=== PATIENT | male | born 1970 | race Caucasian/White ===

== ENCOUNTER → 2016-04-12 | Outpatient (REF) | payer OTHER ==
[~2016-04-12] MED LIST: ALLO100T PO; AMLO10TA2 PO; BYST5TAB2 PO
[2016-04-12 18:15] LABS: ALBUMIN 3.8 GM/DL (3.2-5.2); ALBUMIN/GLOBULIN RATIO 1.19 (1.00-1.93); BILIRUBIN,TOTAL 0.4 MG/DL (0.2-1.0); CALCIUM LEVEL 8.9 MG/DL (8.5-10.1); CREATININE FOR GFR 1.59 MG/DL (0.70-1.30); GLOMERULAR FILTRATION RATE 50.6 (>60); POTASSIUM SERUM 4.6 MEQ/L (3.5-5.1)
[2016-04-12 19:14] LABS: BASO % 0.4 % (0.0-1.0); EOS # 0.2 K/mm3 (0.0-0.50); EOS % 2.1 % (0.0-3.0); LARGE UNSTAINED CELL # 0.2 K/mm3 (0.0-0.4); LARGE UNSTAINED CELL % 2.5 % (0.0-4.0); LYMPH # 1.4 K/mm3 (1.5-4.5); LYMPH % 16.7 % (24.0-44.0); MEAN CORPUSCULAR HEMOGLOBIN 27.7 pg (27.0-33.0); MEAN CORPUSCULAR HGB CONC 32.5 g/dl (32.0-36.5); MEAN CORPUSCULAR VOLUME 85.3 fl (80.0-96.0); MONO # 0.5 K/mm3 (0.0-0.8); MONO % 6.4 % (0.0-5.0); NEUTROPHILS # 5.9 K/mm3 (1.8-7.7); NEUTROPHILS % 71.9 % (36.0-66.0); PLATELET COUNT, AUTOMATED 237 k/mm3 (150-450); RED CELL DISTRIBUTION WIDTH 13.4 % (11.5-14.5); WHITE BLOOD COUNT 8.2 K/mm3 (4.0-10.0)
== END | disposition home or self-care (01) ==
LOC: M SFHCLERA 10:41
PROVIDERS: ATTEND Family Medicine
DX: R82.99 Other abnormal findings in urine (principal); J00 Acute nasopharyngitis [common cold]

== ENCOUNTER 2016-06-11 08:54 | Emergency (ER) | payer OTHER ==
[~2016-06-11] VITALS: Ht 180.3 cm; Wt 127.0 kg
[2016-06-11] MEDS ORDERED: CARV3.12 (09:04)
[2016-06-11 09:38] LABS: BASO # 0.1 K/mm3 (0.0-0.2); BASO % 0.7 % (0.0-1.0); EOS # 0.2 K/mm3 (0.0-0.50); LARGE UNSTAINED CELL # 0.1 K/mm3 (0.0-0.4); LARGE UNSTAINED CELL % 1.6 % (0.0-4.0); LYMPH # 2.2 K/mm3 (1.5-4.5); MEAN CORPUSCULAR HEMOGLOBIN 27.6 pg (27.0-33.0); MEAN CORPUSCULAR HGB CONC 33.4 g/dl (32.0-36.5); MEAN CORPUSCULAR VOLUME 82.6 fl (80.0-96.0); MONO # 0.5 K/mm3 (0.0-0.8); MONO % 5.7 % (0.0-5.0); NEUTROPHILS % 63.1 % (36.0-66.0); PLATELET COUNT, AUTOMATED 237 k/mm3 (150-450); WHITE BLOOD COUNT 7.9 K/mm3 (4.0-10.0)
[2016-06-11] MEDS ORDERED: MECLIZINE 25 MG TABLET PO ONE (10:15)
[2016-06-11 10:33] LABS: ALBUMIN 3.9 GM/DL (3.2-5.2); ALBUMIN/GLOBULIN RATIO 1.03 (1.00-1.93); ALKALINE PHOSPHATASE 51 U/L (45-117); ALT/SGPT 60 U/L (12-78); ANION GAP 6 MEQ/L (8-16); AST/SGOT 22 U/L (15-37); BILIRUBIN,DIRECT < 0.1 MG/DL (0.0-0.2); BILIRUBIN,TOTAL 0.2 MG/DL (0.2-1.0); BLOOD UREA NITROGEN 17 MG/DL (7-18); CARBON DIOXIDE LEVEL 27 MEQ/L (21-32); CHLORIDE LEVEL 104 MEQ/L (98-107); CREATININE FOR GFR 1.45 MG/DL (0.70-1.30); GLOMERULAR FILTRATION RATE 56.3 (>60); GLUCOSE, FASTING 114 MG/DL (70-105); POTASSIUM SERUM 4.1 MEQ/L (3.5-5.1); SODIUM LEVEL 137 MEQ/L (136-145); TOTAL PROTEIN 7.7 GM/DL (6.4-8.2)
--- NOTE | 2016-06-11 10:40 | REP ---
Noncontrast head CT: History: Vertigo. History of pseudotumor cerebral. No comparison brain CT. Findings: Digital lateral cow puncher radiograph is unremarkable. Bone window settings demonstrate an intact bony calvarium. Visualized paranasal sinuses are clear. No intraorbital abnormality is seen. On soft tissue window settings, avendaño-white differentiation pattern is normal above and below the tentorium. There is no evidence of diffuse cerebral edema. Lateral third and fourth ventricles are normal in size and position. There is no evidence of intracranial hemorrhage, infarct, mass, extra-axial fluid collection, or midline shift. Impression: Normal noncontrast head CT. Signed by John Meier MD 06/11/2016 11:22 A
[2016-06-11] MEDS ORDERED: MECL-86 PO (12:45)
[2016-06-11 12:54] VITALS: BP 139/83
--- NOTE | 2016-06-13 08:56 | ECGEPIP ---
Stationary ECG Study 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
== END 2016-06-11 12:56 | disposition home or self-care (01) ==
LOC: M ED 10:52
DX: R42 Dizziness and giddiness (principal); H93.12 Tinnitus, left ear; I10 Essential (primary) hypertension; M19.90 Unspecified osteoarthritis, unspecified site; M10.9 Gout, unspecified; Z90.5 Acquired absence of kidney; Z87.891 Personal history of nicotine dependence; Z86.011 Personal history of benign neoplasm of the brain; Z79.899 Other long term (current) drug therapy

== ENCOUNTER → 2016-09-07 | Outpatient (REF) | payer OTHER ==
[~2016-09-07] MED LIST changes: +CARV3.12; +MECL-86 PO
[2016-09-07 11:54] LABS: MEAN CORPUSCULAR HEMOGLOBIN 31.5 pg (27.0-33.0); MEAN CORPUSCULAR HGB CONC 36.3 g/dl (32.0-36.5); MEAN CORPUSCULAR VOLUME 86.9 fl (80.0-96.0); RED CELL DISTRIBUTION WIDTH 13.5 % (11.5-14.5); WHITE BLOOD COUNT 6.2 K/mm3 (4.0-10.0)
[2016-09-07 12:19] LABS: CALCIUM LEVEL 9.4 MG/DL (8.5-10.1); CREATININE FOR GFR 1.55 MG/DL (0.70-1.30); GLOMERULAR FILTRATION RATE 52.1 (>60); POTASSIUM SERUM 4.5 MEQ/L (3.5-5.1)
== END ==
LOC: M SFHCLERA 08:12
PROVIDERS: ATTEND Family Medicine
DX: I10 Essential (primary) hypertension (principal)

== ENCOUNTER 2017-01-22 10:23 | Emergency (ER) | payer OTHER ==
[~2017-01-22] VITALS: Ht 180.3 cm; Wt 132.0 kg
--- NOTE | 2017-01-22 11:32 | REP ---
Clinical: Left testicular pain and swelling. Technique: Real time avendaño scale and color Doppler evaluation using curved array and linear high frequency transducers. Findings: The left epididymis is heterogeneous and asymmetrically enlarged with mildly increased vascularity and a small left hydrocele is noted. Findings are consistent with left epididymitis. The bilateral testicles and right epididymis are normal in contour, size, echogenicity, and vascularity. There is no evidence for testicular torsion. Right testicle measures 4.9 x 3.0 x 3.1 cm. Left testicle measures 4.9 x 2.9 x 3.1 cm. Impression: Findings consistent with mild left epididymitis. Signed by Nitesh Smith MD 01/22/2017 11:23 A
[2017-01-22] MEDS ORDERED: DOXYCYCLINE HYCLATE 100 MG TAB PO ONE (12:45)
[2017-01-22] MEDS ORDERED: cefTRIAXone SOD 250 MG VIAL (J0696) IM ONE (12:45)
[2017-01-22] MEDS ORDERED: DOXY100C37 PO (12:46)
[2017-01-22] MEDS ORDERED: LIDOCAINE 1% MDV 20ML VIAL As Ordered ONE (12:58)
[2017-01-22 13:55] VITALS: BP 149/93
== END 2017-01-22 13:57 | disposition home or self-care (01) ==
LOC: M ED 10:23
DX: N45.1 Epididymitis (principal); I10 Essential (primary) hypertension; M10.9 Gout, unspecified; Z79.899 Other long term (current) drug therapy; Z90.5 Acquired absence of kidney; Z87.442 Personal history of urinary calculi; Z98.890 Other specified postprocedural states; Z87.891 Personal history of nicotine dependence
CPT/HCPCS: 76870; 87086; 87491; 87591; 93976; 96372; 99283; J0696

== ENCOUNTER → 2017-02-11 | Outpatient (REF) | payer OTHER ==
[~2017-02-11] MED LIST changes: +DOXY100C37 PO
[2017-02-11 12:17] LABS: ALBUMIN 3.9 GM/DL (3.2-5.2); ALBUMIN/GLOBULIN RATIO 1.08 (1.00-1.93); BILIRUBIN,TOTAL 0.5 MG/DL (0.2-1.0); CREATININE FOR GFR 1.55 MG/DL (0.70-1.30); GLOMERULAR FILTRATION RATE 51.9 (>60); POTASSIUM SERUM 4.6 MEQ/L (3.5-5.1); TOTAL PROTEIN 7.5 GM/DL (6.4-8.2)
== END ==
LOC: M SFHCLERA 09:26
PROVIDERS: ATTEND Physician Assistant
DX: R73.01 Impaired fasting glucose (principal)

== ENCOUNTER → 2017-05-17 | Outpatient (REF) | payer OTHER ==
[2017-05-17 12:39] LABS: ALBUMIN 3.8 GM/DL (3.2-5.2); ALBUMIN/GLOBULIN RATIO 1.06 (1.00-1.93); ALKALINE PHOSPHATASE 48 U/L (45-117); ALT/SGPT 98 U/L (12-78); ANION GAP 6 MEQ/L (8-16); AST/SGOT 35 U/L (7-37); BILIRUBIN,TOTAL 0.5 MG/DL (0.2-1.0); BLOOD UREA NITROGEN 17 MG/DL (7-18); CALCIUM LEVEL 9.1 MG/DL (8.5-10.1); CARBON DIOXIDE LEVEL 30 MEQ/L (21-32); CHLORIDE LEVEL 105 MEQ/L (98-107); CHOLESTEROL LEVEL 162 MG/DL (<200); CHOLESTEROL RISK RATIO 4.628 (<5); CREATININE FOR GFR 1.61 MG/DL (0.70-1.30); GLOMERULAR FILTRATION RATE 49.7 (>60); GLUCOSE, FASTING 114 MG/DL (70-100); HDL CHOLESTEROL 35 MG/DL (>40); LDL CHOLESTEROL 97.4 MG/DL (<100); NON-HDL-C 127 MG/DL; POTASSIUM SERUM 4.9 MEQ/L (3.5-5.1); SODIUM LEVEL 141 MEQ/L (136-145); TOTAL PROTEIN 7.4 GM/DL (6.4-8.2); TRIGLYCERIDES LEVEL 148 MG/DL (<150); URIC ACID 6.2 MG/DL (3.5-7.2)
[2017-05-17 12:46] LABS: ESTIMATED AVERAGE GLUCOSE 143 MG/DL (60-110); HEMOGLOBIN A1c 6.6 %
== END ==
LOC: M SFHCLERA 08:23
DX: E78.2 Mixed hyperlipidemia (principal); I10 Essential (primary) hypertension; R73.01 Impaired fasting glucose; E79.0 Hyperuricemia without signs of inflammatory arthritis and tophaceous disease; F43.23 Adjustment disorder with mixed anxiety and depressed mood

== ENCOUNTER → 2018-01-09 | Outpatient (REF) | payer OTHER ==
[2018-01-09 12:43] LABS: ANION GAP 8 MEQ/L (8-16); BLOOD UREA NITROGEN 16 MG/DL (7-18); CALCIUM LEVEL 9.1 MG/DL (8.5-10.1); CARBON DIOXIDE LEVEL 28 MEQ/L (21-32); CHLORIDE LEVEL 101 MEQ/L (98-107); CHOLESTEROL LEVEL 174 MG/DL (<200); CHOLESTEROL RISK RATIO 6.692 (<5); CREATININE FOR GFR 1.54 MG/DL (0.70-1.30); GLUCOSE, FASTING 252 MG/DL (70-100); HDL CHOLESTEROL 26 MG/DL (>40); LDL CHOLESTEROL 80 MG/DL (<100); NON-HDL-C 148 MG/DL; POTASSIUM SERUM 4.4 MEQ/L (3.5-5.1); SODIUM LEVEL 137 MEQ/L (136-145); TRIGLYCERIDES LEVEL 341 MG/DL (<150)
[2018-01-09 12:52] LABS: MAU/CREAT RATIO 276.4 MCG/MG (0.0-30.0)
[2018-01-09 14:58] LABS: ESTIMATED AVERAGE GLUCOSE 206 MG/DL (60-110); HEMOGLOBIN A1c 8.8 %
== END ==
LOC: M SFHCLERA 09:29
DX: E11.9 Type 2 diabetes mellitus without complications (principal); E78.2 Mixed hyperlipidemia

== ENCOUNTER → 2018-02-09 | Outpatient (REF) | payer OTHER ==
[2018-02-09 17:22] LABS: ANION GAP 7 MEQ/L (8-16); BLOOD UREA NITROGEN 17 MG/DL (7-18); CALCIUM LEVEL 9.1 MG/DL (8.5-10.1); CARBON DIOXIDE LEVEL 29 MEQ/L (21-32); CHLORIDE LEVEL 103 MEQ/L (98-107); CREATININE FOR GFR 1.52 MG/DL (0.70-1.30); GLOMERULAR FILTRATION RATE 52.8 (>60); GLUCOSE, FASTING 125 MG/DL (70-100); POTASSIUM SERUM 3.9 MEQ/L (3.5-5.1); SODIUM LEVEL 139 MEQ/L (136-145)
== END ==
LOC: M SFHCLERA 14:52
DX: D48.5 Neoplasm of uncertain behavior of skin (principal); E11.9 Type 2 diabetes mellitus without complications
CPT/HCPCS: 80048

== ENCOUNTER → 2018-05-18 | Outpatient (REF) | payer OTHER ==
[~2018-05-18] MED LIST changes: -AMLO10TA2 PO; +AMLO10TA5 PO
[2018-05-18 14:04] LABS: HEMOGLOBIN A1c 6.3 %
== END ==
LOC: M LRY 11:34
PROVIDERS: ATTEND Dietitian, Registered Nutrition, Metabolic
DX: E11.9 Type 2 diabetes mellitus without complications (principal)

== ENCOUNTER → 2018-09-15 | Outpatient (REF) | payer OTHER ==
[2018-09-15 11:37] LABS: HEMOGLOBIN A1c 6.2 %
[2018-09-15 11:41] LABS: ALBUMIN 3.9 GM/DL (3.2-5.2); BILIRUBIN,TOTAL 0.3 MG/DL (0.2-1.0); CALCIUM LEVEL 9.1 MG/DL (8.5-10.1); CREATININE FOR GFR 1.55 MG/DL (0.70-1.30); GLOMERULAR FILTRATION RATE 51.6 (>60); POTASSIUM SERUM 4.7 MEQ/L (3.5-5.1); TOTAL PROTEIN 7.4 GM/DL (6.4-8.2)
== END ==
LOC: M SFHCLERA 08:36
PROVIDERS: ATTEND Family Medicine
DX: E11.9 Type 2 diabetes mellitus without complications (principal); I10 Essential (primary) hypertension

== ENCOUNTER 2018-11-19 14:50 | Emergency (ER) | payer OTHER ==
[~2018-11-19] VITALS: Ht 180.3 cm; Wt 127.7 kg
[2018-11-19] MEDS ORDERED: METF-791 (14:59)
--- NOTE | 2018-11-19 16:19 | REP ---
Right lower extremity Duplex Doppler venous ultrasound: Real time compression and duplex Doppler interrogation of the right lower extremity deep venous system is performed. The right common femoral, superficial femoral and popliteal veins are fully compressible with transducer pressure and demonstrate normal spontaneous and phasic flow, without evidence of deep venous thrombosis. Impression: No evidence of deep venous thrombosis of the right lower extremity femoral popliteal venous system. Electronically Signed by Michael Abel MD 11/19/2018 04:10 P
[2018-11-19 16:29] VITALS: BP 125/81
== END 2018-11-19 16:49 | disposition home or self-care (01) ==
LOC: M ED 14:50
DX: M79.661 Pain in right lower leg (principal)

== ENCOUNTER → 2018-12-07 | Outpatient (REF) | payer OTHER ==
[~2018-12-07] MED LIST changes: +METF-791
[2018-12-10 00:07] LABS: Lyme Disease IgG/IgM Antibodie <0.91 ISR (0.00-0.90); Lyme Disease IgM Ab Quantitati <0.80 index (0.00-0.79)
== END ==
LOC: M LABDRAW1 14:30
PROVIDERS: ATTEND Orthopaedic Surgery
DX: M17.0 Bilateral primary osteoarthritis of knee (principal)

== ENCOUNTER → 2018-12-13 | Outpatient (REF) | payer OTHER ==
[2018-12-13 12:19] LABS: CHOLESTEROL RISK RATIO 4.447 (<5)
[2018-12-13 12:45] LABS: HEMOGLOBIN A1c 6.2 %
== END ==
LOC: M SFHCLERA 08:33
PROVIDERS: ATTEND Family Medicine
DX: E11.21 Type 2 diabetes mellitus with diabetic nephropathy (principal)

== ENCOUNTER → 2019-03-20 | Outpatient (REF) | payer BC ==
[2019-03-20 15:16] LABS: HEMOGLOBIN A1c 6.7 %
== END ==
LOC: M SFHCLERA 08:30
PROVIDERS: ATTEND Family Medicine
DX: E11.21 Type 2 diabetes mellitus with diabetic nephropathy (principal)

== ENCOUNTER → 2019-04-10 | Outpatient (REF) | payer BC ==
[2019-04-10 12:46] LABS: BASO # 0.1 10^3/uL (0.0-0.2); EOS # 0.2 10^3/uL (0.0-0.5); EOS % 2.4 % (0.0-3.0); HEMATOCRIT 48.4 % (42.0-52.0); HEMOGLOBIN 15.7 g/dl (13.5-17.5); LYMPH # 1.7 10^3/uL (1.5-5.0); LYMPH % 22.2 % (24.0-44.0); MEAN CORPUSCULAR HEMOGLOBIN 27.6 pg (27.0-33.0); MEAN CORPUSCULAR HGB CONC 32.4 g/dl (32.0-36.5); MEAN CORPUSCULAR VOLUME 85.1 fl (80.0-96.0); MONO # 0.5 10^3/uL (0.0-0.8); MONO % 6.6 % (0.0-5.0); NEUTROPHILS # 5.3 10^3/uL (1.5-8.5); PLATELET COUNT, AUTOMATED 256 10^3/uL (150-450); RED BLOOD COUNT 5.69 10^6/uL (4.30-6.10); WHITE BLOOD COUNT 7.8 10^3/uL (4.0-10.0)
[2019-04-10 13:00] LABS: ALT/SGPT 65 U/L (12-78); BILIRUBIN,TOTAL 0.3 MG/DL (0.2-1.0); BLOOD UREA NITROGEN 16 MG/DL (7-18); C REACTIVE PROTEIN QUANTITATIV 0.35 MG/DL (0.00-0.30); CALCIUM LEVEL 9.6 MG/DL (8.5-10.1); CARBON DIOXIDE LEVEL 27 MEQ/L (21-32); CHLORIDE LEVEL 104 MEQ/L (98-107); CREATININE FOR GFR 1.44 MG/DL (0.70-1.30); GLUCOSE, FASTING 189 MG/DL (70-100); POTASSIUM SERUM 4.4 MEQ/L (3.5-5.1); RHEUMATOID FACTOR QUANT < 10.0 IU/ML (<15.0); SODIUM LEVEL 137 MEQ/L (136-145); TOTAL PROTEIN 7.6 GM/DL (6.4-8.2); URIC ACID 4.5 MG/DL (3.5-7.2)
[2019-04-10 13:25] LABS: ERYTHROCYTE SEDIMENTATION RATE 10 mm/hr (0-15)
== END ==
LOC: M SFHCRHEU 09:37
PROVIDERS: ATTEND Internal Medicine
DX: M25.50 Pain in unspecified joint (principal); M1A.39X0 Chronic gout due to renal impairment, multiple sites, without tophus (tophi)

== ENCOUNTER → 2019-04-17 | Outpatient (CLI) | payer BC | LOC: M LRY 12:50 | PROVIDERS: ATTEND Urology | DX: N39.43 Post-void dribbling (principal) ==

== ENCOUNTER → 2019-06-25 | Outpatient (REF) | payer BC ==
[2019-06-25 17:32] LABS: BASO # 0.1 10^3/uL (0.0-0.2); EOS # 0.2 10^3/uL (0.0-0.5); EOS % 2.4 % (0.0-3.0); HEMOGLOBIN 15.9 g/dl (13.5-17.5); LYMPH # 2.4 10^3/uL (1.5-5.0); LYMPH % 26.4 % (24.0-44.0); MEAN CORPUSCULAR HEMOGLOBIN 28.4 pg (27.0-33.0); MEAN CORPUSCULAR HGB CONC 33.8 g/dl (32.0-36.5); MEAN CORPUSCULAR VOLUME 84.1 fl (80.0-96.0); MONO # 0.7 10^3/uL (0.0-0.8); MONO % 7.3 % (0.0-5.0); NEUTROPHILS # 5.8 10^3/uL (1.5-8.5); NEUTROPHILS % 62.4 % (36.0-66.0); PLATELET COUNT, AUTOMATED 260 10^3/uL (150-450); RED BLOOD COUNT 5.59 10^6/uL (4.30-6.10); WHITE BLOOD COUNT 9.2 10^3/uL (4.0-10.0)
[2019-06-25 18:00] LABS: ALBUMIN 3.9 GM/DL (3.2-5.2); BILIRUBIN,TOTAL 0.5 MG/DL (0.2-1.0); CALCIUM LEVEL 9.4 MG/DL (8.5-10.1); CREATININE FOR GFR 1.41 MG/DL (0.70-1.30); GLOMERULAR FILTRATION RATE 57.4 (>60); TOTAL PROTEIN 7.4 GM/DL (6.4-8.2); URIC ACID 4.8 MG/DL (3.5-7.2)
== END ==
LOC: M SFHCRHEU 14:26
PROVIDERS: ATTEND Internal Medicine
DX: M1A.39X0 Chronic gout due to renal impairment, multiple sites, without tophus (tophi) (principal)

== ENCOUNTER → 2019-09-07 | Outpatient (CLI) | payer BC ==
[~2019-09-07] MED LIST changes: -AMLO10TA5 PO; +AMLO1TAB25 PO; -METF-791; +METF-838
[2019-09-07 10:36] LABS: BASO # 0.1 10^3/uL (0.0-0.2); EOS # 0.2 10^3/uL (0.0-0.5); EOS % 2.7 % (0.0-3.0); HEMOGLOBIN 15.6 g/dl (13.5-17.5); LYMPH # 1.7 10^3/uL (1.5-5.0); LYMPH % 23.6 % (24.0-44.0); MEAN CORPUSCULAR HGB CONC 33.2 g/dl (32.0-36.5); MEAN CORPUSCULAR VOLUME 84.4 fl (80.0-96.0); MONO # 0.5 10^3/uL (0.0-0.8); MONO % 6.5 % (0.0-5.0); NEUTROPHILS # 4.8 10^3/uL (1.5-8.5); NEUTROPHILS % 65.5 % (36.0-66.0); PLATELET COUNT, AUTOMATED 243 10^3/uL (150-450); RED BLOOD COUNT 5.57 10^6/uL (4.30-6.10); WHITE BLOOD COUNT 7.3 10^3/uL (4.0-10.0)
[2019-09-07 10:41] LABS: APPEARANCE, URINE CLEAR (CLEAR); BACTERIA, URINE AUTO 1+ (NEGATIVE); BILIRUBIN, URINE AUTO NEGATIVE (NEGATIVE); BLOOD, URINE BLOOD NEGATIVE (NEGATIVE); COLOR, URINE YELLOW (YELLOW); GLUCOSE, URINE (UA) AUTO 1+ mg/dL (NEGATIVE); KETONE, URINE AUTO NEGATIVE (NEGATIVE); LEUKOCYTE ESTERASE, URINE AUTO NEGATIVE (NEGATIVE); MUCUS, URINE SMALL (NEGATIVE); NITRITE, URINE AUTO NEGATIVE (NEGATIVE); PROTEIN, URINE AUTO 2+ mg/dL (NEGATIVE); RBC, URINE AUTO 2 /HPF (0-3); SPECIFIC GRAVITY URINE AUTO 1.017 (1.002-1.035); SQUAMOUS EPITHELIAL CELL UR AU 0 /HPF (0-6); UROBILINOGEN, URINE AUTO 0.2 mg/dL (0.0-2.0); WBC, URINE AUTO 1 /HPF (0-3)
[2019-09-07 11:06] LABS: ALBUMIN 3.6 GM/DL (3.2-5.2); BILIRUBIN,TOTAL 0.6 MG/DL (0.2-1.0); CALCIUM LEVEL 9.1 MG/DL (8.5-10.1); CREATININE FOR GFR 1.64 MG/DL (0.70-1.30); GLOMERULAR FILTRATION RATE 48.2 (>60); POTASSIUM SERUM 4.3 MEQ/L (3.5-5.1); TOTAL PROTEIN 7.5 GM/DL (6.4-8.2)
[2019-09-07 11:07] LABS: HEMOGLOBIN A1c 7.1 %
== END ==
LOC: M LAB 09:28
PROVIDERS: ATTEND Urology
DX: Z01.812 Encounter for preprocedural laboratory examination (principal); R82.998 Other abnormal findings in urine; R79.9 Abnormal finding of blood chemistry, unspecified; E11.9 Type 2 diabetes mellitus without complications

== ENCOUNTER → 2019-12-20 | Outpatient (CLI) | payer BC ==
[2019-12-20 14:20] LABS: CHOLESTEROL RISK RATIO 4.969 (<5)
[2019-12-20 14:30] LABS: HEMOGLOBIN A1c 6.3 %
== END ==
LOC: M LAB 12:56
PROVIDERS: ATTEND Family Medicine
DX: E11.21 Type 2 diabetes mellitus with diabetic nephropathy (principal)

== ENCOUNTER → 2019-12-20 | Outpatient (CLI) | payer BC ==
[2019-12-20 14:00] LABS: BASO # 0.1 10^3/uL (0.0-0.2); BASO % 0.9 % (0.0-1.0); EOS # 0.2 10^3/uL (0.0-0.5); EOS % 2.2 % (0.0-3.0); HEMATOCRIT 44.2 % (42.0-52.0); HEMOGLOBIN 14.4 g/dl (13.5-17.5); LYMPH # 2.5 10^3/uL (1.5-5.0); LYMPH % 26.2 % (24.0-44.0); MEAN CORPUSCULAR HEMOGLOBIN 27.2 pg (27.0-33.0); MEAN CORPUSCULAR HGB CONC 32.6 g/dl (32.0-36.5); MEAN CORPUSCULAR VOLUME 83.4 fl (80.0-96.0); MONO # 0.8 10^3/uL (0.0-0.8); MONO % 8.9 % (0.0-5.0); NEUTROPHILS # 5.7 10^3/uL (1.5-8.5); NEUTROPHILS % 60.9 % (36.0-66.0); PLATELET COUNT, AUTOMATED 252 10^3/uL (150-450); WHITE BLOOD COUNT 9.4 10^3/uL (4.0-10.0)
[2019-12-20 14:20] LABS: ALBUMIN 3.8 GM/DL (3.2-5.2); BILIRUBIN,TOTAL 0.4 MG/DL (0.2-1.0); C REACTIVE PROTEIN QUANTITATIV 0.56 MG/DL (0.00-0.30); CREATININE FOR GFR 1.39 MG/DL (0.70-1.30); GLOMERULAR FILTRATION RATE 58.1 (>60); POTASSIUM SERUM 4.2 MEQ/L (3.5-5.1); URIC ACID 5.2 MG/DL (3.5-7.2)
[2019-12-20 14:37] LABS: ERYTHROCYTE SEDIMENTATION RATE 14 mm/hr (0-15)
== END ==
LOC: M LAB 12:54
PROVIDERS: ATTEND Internal Medicine
DX: M1A.39X0 Chronic gout due to renal impairment, multiple sites, without tophus (tophi) (principal); M25.50 Pain in unspecified joint

== ENCOUNTER → 2020-01-10 | Outpatient (CLI) | payer BC ==
[2020-01-10 10:45] LABS: BASO # 0.1 10^3/uL (0.0-0.2); BASO % 0.9 % (0.0-1.0); EOS # 0.2 10^3/uL (0.0-0.5); EOS % 2.7 % (0.0-3.0); HEMATOCRIT 45.1 % (42.0-52.0); HEMOGLOBIN 14.6 g/dl (13.5-17.5); LYMPH # 1.9 10^3/uL (1.5-5.0); LYMPH % 24.5 % (24.0-44.0); MEAN CORPUSCULAR HEMOGLOBIN 27.1 pg (27.0-33.0); MEAN CORPUSCULAR HGB CONC 32.4 g/dl (32.0-36.5); MEAN CORPUSCULAR VOLUME 83.8 fl (80.0-96.0); MONO # 0.9 10^3/uL (0.0-0.8); MONO % 11.9 % (0.0-5.0); NEUTROPHILS # 4.6 10^3/uL (1.5-8.5); NEUTROPHILS % 59.4 % (36.0-66.0); PLATELET COUNT, AUTOMATED 287 10^3/uL (150-450); RED BLOOD COUNT 5.38 10^6/uL (4.30-6.10); WHITE BLOOD COUNT 7.8 10^3/uL (4.0-10.0)
[2020-01-10 11:04] LABS: ERYTHROCYTE SEDIMENTATION RATE 10 mm/hr (0-15)
[2020-01-10 11:25] LABS: ALBUMIN 3.9 GM/DL (3.2-5.2); BILIRUBIN,TOTAL 0.5 MG/DL (0.2-1.0); C REACTIVE PROTEIN QUANTITATIV 1.44 MG/DL (0.00-0.30); CALCIUM LEVEL 9.7 MG/DL (8.5-10.1); CREATININE FOR GFR 1.37 MG/DL (0.70-1.30); POTASSIUM SERUM 4.5 MEQ/L (3.5-5.1); TOTAL PROTEIN 7.4 GM/DL (6.4-8.2); URIC ACID 4.8 MG/DL (3.5-7.2)
== END ==
LOC: M LAB 10:11
PROVIDERS: ATTEND Internal Medicine
DX: M25.50 Pain in unspecified joint (principal); M1A.39X0 Chronic gout due to renal impairment, multiple sites, without tophus (tophi)

== ENCOUNTER → 2020-03-05 | Outpatient (REF) | payer BC ==
[2020-03-05 18:22] LABS: FREE T4 3.05 NG/DL (0.76-1.46); THYROID STIMULATING HORMONE < 0.005 uIU/ML (0.358-3.740)
== END ==
LOC: M LAB REF 17:11
PROVIDERS: ATTEND Internal Medicine Nephrology
DX: R00.0 Tachycardia, unspecified (principal)

== ENCOUNTER → 2020-03-13 | Outpatient (CLI) | payer BC ==
[2020-03-13 14:04] LABS: FREE T3 11.8 PG/ML (2.2-4.0)
[2020-03-13 14:07] LABS: THYROID PEROXIDASE ANTIBODY < 28.0 U/ML (<60.0)
== END ==
LOC: M LAB 12:01
PROVIDERS: ATTEND Family Medicine
DX: E05.90 Thyrotoxicosis, unspecified without thyrotoxic crisis or storm (principal)

== ENCOUNTER → 2020-03-25 | Outpatient (CLI) | payer BC ==
--- NOTE | 2020-03-26 11:57 | REP ---
INDICATION: THYROTOXICOSIS COMPARISON: None. TECHNIQUE/RADIOTRACER AND DOSE: 425.0 uCi of Iodine-123 sodium iodide is ingested and functional thyroid images and thyroid uptake values are acquired. FINDINGS: Twenty-four uptake value is elevated at 46.6% (25-35%). Functional images demonstrate homogeneous uptake in mildly prominent sized glands bilaterally. No cold or warm lesion is seen. IMPRESSION: Findings consistent with Graves disease. 24 hour uptake value 46.6%. <Electronically signed by Pa Meier > 03/26/20 [id number]
== END ==
LOC: M RAD 10:39
PROVIDERS: ATTEND Internal Medicine Endocrinology, Diabetes & Metabolism
DX: E05.00 Thyrotoxicosis with diffuse goiter without thyrotoxic crisis or storm (principal)
CPT/HCPCS: 78012; A9516

== ENCOUNTER → 2020-04-02 | Outpatient (CLI) | payer SELFPAY | LOC: M LABSMTC 12:57 | PROVIDERS: ATTEND Pediatrics | DX: Z20.822 Contact with and (suspected) exposure to COVID-19 (principal) ==

== ENCOUNTER → 2020-05-01 | Outpatient (CLI) | payer BC ==
[~2020-05-01] MED LIST changes: +ATEN25TA; +CEPH500C PO
== END ==
LOC: M RAD 13:13
PROVIDERS: ATTEND Internal Medicine Endocrinology, Diabetes & Metabolism
DX: E05.00 Thyrotoxicosis with diffuse goiter without thyrotoxic crisis or storm (principal)
CPT/HCPCS: 79005; A9517

== ENCOUNTER 2020-05-03 13:48 | Emergency (ER) | payer BC ==
[~2020-05-03] VITALS: Ht 180.3 cm; Wt 116.9 kg
[~2020-05-03 13:48] MED LIST changes: -ATEN25TA; -CEPH500C PO
[2020-05-03] MEDS ORDERED: ATEN25TA (13:58)
[2020-05-03] MEDS ORDERED: PERCOCET 5MG/325MG TAB PO ONE (14:20)
[2020-05-03] MEDS ORDERED: BOOSTRIX/ADACEL VACCINE (DIPHTH/PERTUSS/ACELL/TETANUS) 0.5ML SYR IM ONE (14:20)
[2020-05-03] MEDS ORDERED: LIDOCAINE 2% MDV 20ML VIAL SC ONE (15:10)
--- NOTE | 2020-05-03 15:10 | REP ---
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 TECHNIQUE: AP, lateral, bilateral oblique views left hand. FINDINGS: The osseous structures and joint spaces are intact and normal. There is no evidence for acute fracture or dislocation. Surrounding soft tissues are unremarkable. No subcutaneous emphysema flecks of foreign body material in the region of the soft tissues at the 1st metacarpophalangeal joint may be overlying and within bandage material. IMPRESSION: Questionable foreign body material. No acute fracture or dislocation. <Electronically signed by Nitesh Smith > 05/03/20 [id number]
[2020-05-03] MEDS ORDERED: CEPH500C PO (15:47)
[2020-05-03 15:53] VITALS: BP 126/79
== END 2020-05-03 15:54 | disposition home or self-care (01) ==
LOC: M ED 13:48
DX: S61.012A Laceration without foreign body of left thumb without damage to nail, initial encounter (principal); W31.89XA Contact with other specified machinery, initial encounter; Y92.009 Unspecified place in unspecified non-institutional (private) residence as the place of occurrence of the external cause; Y93.9 Activity, unspecified; Y99.9 Unspecified external cause status; I10 Essential (primary) hypertension; E11.9 Type 2 diabetes mellitus without complications; E05.01 Thyrotoxicosis with diffuse goiter with thyrotoxic crisis or storm; M10.9 Gout, unspecified; Z79.84 Long term (current) use of oral hypoglycemic drugs; Z79.899 Other long term (current) drug therapy

== ENCOUNTER → 2020-05-09 | Outpatient (CLI) | payer BC ==
[~2020-05-09] MED LIST changes: +ATEN25TA; +CEPH500C PO
[2020-05-09 09:39] LABS: HEMOGLOBIN A1c 6.6 %
== END ==
LOC: M LAB 08:19
PROVIDERS: ATTEND Family Medicine
DX: E11.21 Type 2 diabetes mellitus with diabetic nephropathy (principal)

== ENCOUNTER → 2020-06-19 | Outpatient (CLI) | payer BC ==
--- NOTE | 2020-06-19 09:46 | REP ---
INDICATION: FOOT PAIN, LEFT- LABS FIRST COMPARISON: None. TECHNIQUE: AP and lateral views left foot. FINDINGS: The osseous structures and joint spaces are intact and normal. There is no evidence for acute fracture or dislocation. Surrounding soft tissues are unremarkable. No subcutaneous emphysema or radiodense foreign body. IMPRESSION: Age-appropriate examination. No obvious abnormality by radiographic evaluation. <Electronically signed by Nitesh Smith > 06/19/20 [id number]
[2020-06-19 10:13] LABS: BASO % 0.6 % (0.0-1.0); EOS # 0.1 10^3/uL (0.0-0.5); EOS % 1.8 % (0.0-3.0); HEMATOCRIT 43.4 % (42.0-52.0); HEMOGLOBIN 14.2 g/dl (13.5-17.5); LYMPH # 1.2 10^3/uL (1.5-5.0); LYMPH % 18.5 % (24.0-44.0); MEAN CORPUSCULAR HEMOGLOBIN 26.5 pg (27.0-33.0); MEAN CORPUSCULAR HGB CONC 32.7 g/dl (32.0-36.5); MONO # 0.7 10^3/uL (0.0-0.8); MONO % 10.5 % (2.0-8.0); NEUTROPHILS # 4.4 10^3/uL (1.5-8.5); NEUTROPHILS % 68.3 % (36.0-66.0); PLATELET COUNT, AUTOMATED 245 10^3/uL (150-450); RED BLOOD COUNT 5.36 10^6/uL (4.30-6.10); WHITE BLOOD COUNT 6.5 10^3/uL (4.0-10.0)
[2020-06-19 10:46] LABS: ALBUMIN 3.4 GM/DL (3.2-5.2); ALT/SGPT 28 U/L (12-78); BILIRUBIN,TOTAL 0.5 MG/DL (0.2-1.0); BLOOD UREA NITROGEN 19 MG/DL (7-18); CALCIUM LEVEL 10.1 MG/DL (8.5-10.1); CARBON DIOXIDE LEVEL 30 MEQ/L (21-32); CHLORIDE LEVEL 104 MEQ/L (98-107); CREATININE FOR GFR 1.05 MG/DL (0.70-1.30); GLOMERULAR FILTRATION RATE > 60.0 (>60); GLUCOSE, FASTING 203 MG/DL (70-100); POTASSIUM SERUM 4.2 MEQ/L (3.5-5.1); SODIUM LEVEL 139 MEQ/L (136-145); THYROID STIMULATING HORMONE < 0.005 uIU/ML (0.358-3.740)
[2020-06-19 12:50] LABS: FREE T4 3.14 NG/DL (0.76-1.46)
== END ==
LOC: M LAB 09:18
PROVIDERS: ATTEND Family Medicine
DX: E05.00 Thyrotoxicosis with diffuse goiter without thyrotoxic crisis or storm (principal)

== ENCOUNTER → 2020-07-31 | Outpatient (CLI) | payer BC ==
[2020-07-31 18:45] LABS: CALCIUM LEVEL 9.6 MG/DL (8.5-10.1); FREE T4 0.54 NG/DL (0.76-1.46); PHOSPHORUS LEVEL 3.3 MG/DL (2.5-4.9); THYROID STIMULATING HORMONE 4.35 uIU/ML (0.358-3.740)
[2020-07-31 19:53] LABS: PTH INTACT 39.4 PG/ML (18.5-88.0)
[2020-07-31 19:54] LABS: TOTAL T3 77.3 NG/DL (60.0-181.0)
== END ==
LOC: M LAB 17:03
PROVIDERS: ATTEND Internal Medicine Endocrinology, Diabetes & Metabolism
DX: E05.00 Thyrotoxicosis with diffuse goiter without thyrotoxic crisis or storm (principal); N20.0 Calculus of kidney

== ENCOUNTER → 2020-08-17 | Outpatient (CLI) | payer BC ==
[~2020-08-17] MED LIST changes: -DOXY100C37 PO; +DOXY1CAP62 PO
[2020-08-17 10:19] LABS: FREE T4 0.31 NG/DL (0.76-1.46); THYROID STIMULATING HORMONE 61.7 uIU/ML (0.358-3.740)
== END ==
LOC: M LAB 09:11
PROVIDERS: ATTEND Internal Medicine Endocrinology, Diabetes & Metabolism
DX: N20.0 Calculus of kidney (principal)

== ENCOUNTER → 2020-08-17 | Outpatient (CLI) | payer BC ==
[2020-08-17 10:01] LABS: HEMOGLOBIN A1c 6.4 %
[2020-08-17 10:11] LABS: CHOLESTEROL RISK RATIO 5.5 (<5)
== END ==
LOC: M LAB 09:14
PROVIDERS: ATTEND Family Medicine
DX: E11.21 Type 2 diabetes mellitus with diabetic nephropathy (principal)

== ENCOUNTER → 2020-10-13 | Outpatient (CLI) | payer BC ==
[2020-10-13 17:18] LABS: FREE T4 1.12 NG/DL (0.76-1.46); THYROID STIMULATING HORMONE 7.12 uIU/ML (0.358-3.740)
== END ==
LOC: M LAB 15:52
PROVIDERS: ATTEND Internal Medicine Endocrinology, Diabetes & Metabolism
DX: E03.9 Hypothyroidism, unspecified (principal)

== ENCOUNTER → 2020-10-16 | Outpatient (REF) | payer BC | LOC: M LAB REF 13:02 | PROVIDERS: ATTEND Internal Medicine Nephrology | DX: N18.2 Chronic kidney disease, stage 2 (mild) (principal) ==

== ENCOUNTER → 2020-11-14 | Outpatient (CLI) | payer BC ==
[~2020-11-14] MED LIST changes: +DOXY-443 PO; -DOXY1CAP62 PO
[2020-11-14 10:34] LABS: FREE T4 1.37 NG/DL (0.76-1.46); THYROID STIMULATING HORMONE 0.679 uIU/ML (0.358-3.740)
== END ==
LOC: M LAB 09:14
PROVIDERS: ATTEND Internal Medicine Endocrinology, Diabetes & Metabolism
DX: E03.9 Hypothyroidism, unspecified (principal)

== ENCOUNTER → 2020-11-14 | Outpatient (CLI) | payer BC ==
[2020-11-14 10:31] LABS: CHOLESTEROL RISK RATIO 4.6 (<5)
[2020-11-14 12:09] LABS: HEMOGLOBIN A1c 6.1 %
== END ==
LOC: M LAB 09:18
PROVIDERS: ATTEND Family Medicine
DX: E11.21 Type 2 diabetes mellitus with diabetic nephropathy (principal)

== ENCOUNTER → 2021-01-08 | Outpatient (CLI) | payer BC ==
[2021-01-08 16:47] LABS: ALBUMIN 3.8 GM/DL (3.2-5.2); BILIRUBIN,TOTAL 0.5 MG/DL (0.2-1.0); CALCIUM LEVEL 9.7 MG/DL (8.5-10.1); CREATININE FOR GFR 1.51 MG/DL (0.70-1.30); GLOMERULAR FILTRATION RATE 52.5 (>60); POTASSIUM SERUM 3.8 MEQ/L (3.5-5.1); TOTAL PROTEIN 7.3 GM/DL (6.4-8.2)
== END ==
LOC: M LAB 15:39
PROVIDERS: ATTEND Student in an Organized Health Care Education/Training Program
DX: E11.21 Type 2 diabetes mellitus with diabetic nephropathy (principal)

== ENCOUNTER → 2021-01-08 | Outpatient (CLI) | payer BC ==
[2021-01-08 17:23] LABS: FREE T4 1.36 NG/DL (0.76-1.46); THYROID STIMULATING HORMONE 0.358 uIU/ML (0.358-3.740)
== END ==
LOC: M LAB 15:37
PROVIDERS: ATTEND Internal Medicine Endocrinology, Diabetes & Metabolism
DX: E03.9 Hypothyroidism, unspecified (principal)

== ENCOUNTER → 2021-02-05 | Outpatient (CLI) | payer BC ==
[2021-02-05 16:15] LABS: CALCIUM LEVEL 9.8 MG/DL (8.5-10.1); CREATININE FOR GFR 1.5 MG/DL (0.70-1.30); POTASSIUM SERUM 3.8 MEQ/L (3.5-5.1)
== END ==
LOC: M LAB 15:26
PROVIDERS: ATTEND Internal Medicine Endocrinology, Diabetes & Metabolism
DX: E03.9 Hypothyroidism, unspecified (principal)

== ENCOUNTER → 2021-02-13 | Outpatient (CLI) | payer BC ==
[2021-02-13 15:59] LABS: HEMOGLOBIN A1c 7.2 %
== END ==
LOC: M LAB 15:07
PROVIDERS: ATTEND Student in an Organized Health Care Education/Training Program
DX: E11.21 Type 2 diabetes mellitus with diabetic nephropathy (principal)

== ENCOUNTER → 2021-03-05 | Outpatient (CLI) | payer BC | LOC: M RAD 06:10 | PROVIDERS: ATTEND Student in an Organized Health Care Education/Training Program | DX: R10.11 Right upper quadrant pain (principal) ==

== ENCOUNTER → 2021-03-17 | Outpatient (CLI) | payer BC ==
[2021-03-17 16:45] LABS: CALCIUM LEVEL 9.6 MG/DL (8.5-10.1); CREATININE FOR GFR 1.44 MG/DL (0.70-1.30); FREE T4 1.33 NG/DL (0.76-1.46); GLOMERULAR FILTRATION RATE 55.5 (>60); POTASSIUM SERUM 3.7 MEQ/L (3.5-5.1); THYROID STIMULATING HORMONE 0.266 uIU/ML (0.358-3.740)
== END ==
LOC: M LAB 14:45
PROVIDERS: ATTEND Internal Medicine Endocrinology, Diabetes & Metabolism
DX: E11.65 Type 2 diabetes mellitus with hyperglycemia (principal)

== ENCOUNTER → 2021-04-21 | Outpatient (CLI) | payer BC ==
[2021-04-21 08:57] LABS: FOLLICLE STIMULATING HORMONE 5.7 mIU/mL (1.4-18.1); LUTEINIZING HORMONE 3.1 mIU/mL (1.5-9.3); PROLACTIN 7.5 NG/ML (2.1-17.7)
[2021-04-24 20:12] LABS: TESTOSTERONE %FREE+WEAKLY BOUN 27.9 % (9.0-46.0); TESTOSTERONE FREE+WEAKLY BOUND 82.9 ng/dL (40.0-250.0); TESTOSTERONE TOTAL 297 ng/dL (264-916)
== END ==
LOC: M LAB 07:06
PROVIDERS: ATTEND Internal Medicine Endocrinology, Diabetes & Metabolism
DX: R53.83 Other fatigue (principal)

== ENCOUNTER → 2021-05-18 | Outpatient (CLI) | payer BC | LOC: M LAB 07:47 | PROVIDERS: ATTEND Internal Medicine Endocrinology, Diabetes & Metabolism | DX: R53.83 Other fatigue (principal) ==

== ENCOUNTER → 2021-08-27 | Outpatient (CLI) | payer BC | LOC: M RAD 08:45 | PROVIDERS: ATTEND Student in an Organized Health Care Education/Training Program | DX: R94.5 Abnormal results of liver function studies (principal); R19.7 Diarrhea, unspecified; R12 Heartburn ==

== ENCOUNTER → 2021-11-25 | Outpatient (CLI) | payer BC ==
[2021-11-25 11:00] LABS: BASO # 0.1 10^3/uL (0.0-0.2); BASO % 0.8 % (0.0-1.0); EOS # 0.3 10^3/uL (0.0-0.5); EOS % 3.2 % (0.0-3.0); HEMATOCRIT 51.3 % (42.0-52.0); HEMOGLOBIN 16.5 g/dl (13.5-17.5); LYMPH # 1.8 10^3/uL (1.5-5.0); LYMPH % 20.4 % (24.0-44.0); MEAN CORPUSCULAR HEMOGLOBIN 27.9 pg (27.0-33.0); MEAN CORPUSCULAR HGB CONC 32.2 g/dl (32.0-36.5); MEAN CORPUSCULAR VOLUME 86.7 fl (80.0-96.0); MONO # 0.7 10^3/uL (0.0-0.8); MONO % 8.5 % (2.0-8.0); NEUTROPHILS # 5.8 10^3/uL (1.5-8.5); NEUTROPHILS % 66.6 % (36.0-66.0); PLATELET COUNT, AUTOMATED 219 10^3/uL (150-450); RED BLOOD COUNT 5.92 10^6/uL (4.30-6.10); WHITE BLOOD COUNT 8.7 10^3/uL (4.0-10.0)
[2021-11-25 11:46] LABS: ALBUMIN 3.9 GM/DL (3.2-5.2); BILIRUBIN,TOTAL 0.6 MG/DL (0.2-1.0); CALCIUM LEVEL 9.3 MG/DL (8.5-10.1); CHOLESTEROL RISK RATIO 3.387 (<5); CREATININE FOR GFR 1.52 MG/DL (0.70-1.30); FREE T4 1.48 NG/DL (0.76-1.46); GLOMERULAR FILTRATION RATE 51.9 (>56); POTASSIUM SERUM 4.1 MEQ/L (3.5-5.1); THYROID STIMULATING HORMONE 0.089 uIU/ML (0.358-3.740); TOTAL PROTEIN 7.4 GM/DL (6.4-8.2)
[2021-11-25 11:48] LABS: HEMOGLOBIN A1c 6.3 %
[2021-11-25 11:55] LABS: MAU/CREAT RATIO 100.7 MCG/MG (0.0-30.0)
[2021-11-25 12:06] LABS: TOTAL 25(OH) VITAMIN D 33.2 NG/ML (30.0-100.0)
== END ==
LOC: M LAB 10:13
PROVIDERS: ATTEND Physician Assistant
DX: E11.9 Type 2 diabetes mellitus without complications (principal)

== ENCOUNTER → 2022-01-08 | Outpatient (CLI) | payer BC | LOC: M RAD 06:42 | PROVIDERS: ATTEND Physician Assistant | DX: K43.9 Ventral hernia without obstruction or gangrene (principal) ==

== ENCOUNTER → 2022-01-20 | Outpatient (CLI) | payer BC | LOC: M RAD 16:17 | PROVIDERS: ATTEND Physician Assistant | DX: R10.817 Generalized abdominal tenderness (principal); K76.0 Fatty (change of) liver, not elsewhere classified; N20.0 Calculus of kidney; K43.9 Ventral hernia without obstruction or gangrene ==

== ENCOUNTER → 2022-03-05 | Outpatient (CLI) | payer BC ==
[2022-03-05 12:45] LABS: CALCIUM LEVEL 9.8 MG/DL (8.5-10.1); CREATININE FOR GFR 1.41 MG/DL (0.70-1.30); GLOMERULAR FILTRATION RATE 56.6 (>56); POTASSIUM SERUM 4.3 MMOL/L (3.5-5.1)
[2022-03-05 12:47] LABS: THYROID STIMULATING HORMONE 0.021 uIU/ML (0.55-4.78)
[2022-03-05 12:48] LABS: FREE T4 1.85 NG/DL (0.89-1.76)
== END ==
LOC: M LAB 11:49
PROVIDERS: ATTEND Physician Assistant
DX: E03.9 Hypothyroidism, unspecified (principal)

== ENCOUNTER → 2022-03-24 | Outpatient (REF) | payer BC ==
[2022-03-24 17:33] LABS: CREATININE, URINE 133.5 MG/DL; MAU/CREAT RATIO 38.9 MCG/MG (0.0-30.0)
== END ==
LOC: M LAB REF 16:54
PROVIDERS: ATTEND Nurse Practitioner Family
DX: E11.22 Type 2 diabetes mellitus with diabetic chronic kidney disease (principal)

== ENCOUNTER → 2022-08-09 | Outpatient (CLI) | payer BC ==
[2022-08-09 10:17] LABS: HEMATOCRIT 49.1 % (42.0-52.0); HEMOGLOBIN 16.1 g/dl (13.5-17.5); MEAN CORPUSCULAR HEMOGLOBIN 27.8 pg (27.0-33.0); MEAN CORPUSCULAR HGB CONC 32.8 g/dl (32.0-36.5); MEAN CORPUSCULAR VOLUME 84.7 fl (80.0-96.0); PLATELET COUNT, AUTOMATED 234 10^3/uL (150-450); WHITE BLOOD COUNT 8.4 10^3/uL (4.0-10.0)
[2022-08-09 10:51] LABS: MAU/CREAT RATIO 67.9 MCG/MG (0.0-30.0)
[2022-08-09 10:52] LABS: ALKALINE PHOSPHATASE 44 U/L (46-116); ALT/SGPT 36 U/L (7.0-40); AST/SGOT 18 U/L (<34); BILIRUBIN,TOTAL 0.6 MG/DL (0.3-1.2); BLOOD UREA NITROGEN 20 MG/DL (9-23); CALCIUM LEVEL 9.6 MG/DL (8.5-10.1); CARBON DIOXIDE LEVEL 29 MMOL/L (20-31); CHLORIDE LEVEL 103 MMOL/L (98-107); CHOLESTEROL LEVEL 100 MG/DL (<200); CHOLESTEROL RISK RATIO 2.91 (<5); CREATININE FOR GFR 1.33 MG/DL (0.70-1.30); GLOMERULAR FILTRATION RATE > 60.0 (>56); GLUCOSE, FASTING 101 MG/DL (60-100); HDL CHOLESTEROL 34.3 MG/DL (>40); LDL CHOLESTEROL 38.9 MG/DL (<100); NON-HDL-C 65.7 MG/DL; POTASSIUM SERUM 4.4 MMOL/L (3.5-5.1); SODIUM LEVEL 137 MMOL/L (136-145); TRIGLYCERIDES LEVEL 134 MG/DL (<150)
[2022-08-09 10:56] LABS: FREE T4 2.03 NG/DL (0.89-1.76)
[2022-08-09 10:57] LABS: TOTAL 25(OH) VITAMIN D 30.9 NG/ML (20.0-100.0)
== END ==
LOC: M LAB 09:45
PROVIDERS: ATTEND Internal Medicine Endocrinology, Diabetes & Metabolism
DX: E11.65 Type 2 diabetes mellitus with hyperglycemia (principal)

== ENCOUNTER → 2022-10-01 | Outpatient (CLI) | payer BC ==
[2022-10-01 10:51] LABS: BASO # 0.1 10^3/uL (0.0-0.2); BASO % 0.9 % (0.0-1.0); EOS # 0.1 10^3/uL (0.0-0.5); EOS % 1.1 % (0.0-3.0); HEMOGLOBIN 16.4 g/dl (13.5-17.5); LYMPH # 1.9 10^3/uL (1.5-5.0); LYMPH % 20.8 % (24.0-44.0); MEAN CORPUSCULAR HEMOGLOBIN 27.8 pg (27.0-33.0); MEAN CORPUSCULAR HGB CONC 32.8 g/dl (32.0-36.5); MEAN CORPUSCULAR VOLUME 84.9 fl (80.0-96.0); MONO # 0.7 10^3/uL (0.0-0.8); MONO % 7.5 % (2.0-8.0); NEUTROPHILS # 6.2 10^3/uL (1.5-8.5); NEUTROPHILS % 68.7 % (36.0-66.0); PLATELET COUNT, AUTOMATED 249 10^3/uL (150-450); RED BLOOD COUNT 5.89 10^6/uL (4.30-6.10)
[2022-10-01 11:16] LABS: HEMOGLOBIN A1c 5.4 % (4.0-6.0)
[2022-10-01 11:22] LABS: CREATININE, URINE 65.9 MG/DL
[2022-10-01 11:23] LABS: MAU/CREAT RATIO 19.7 MCG/MG (0.0-30.0)
[2022-10-01 11:27] LABS: THYROID STIMULATING HORMONE 0.032 uIU/ML (0.55-4.78)
[2022-10-01 11:28] LABS: FREE T4 1.97 NG/DL (0.89-1.76)
[2022-10-01 11:30] LABS: ALBUMIN 4.2 G/DL (3.2-5.2); BILIRUBIN,TOTAL 0.8 MG/DL (0.3-1.2); CALCIUM LEVEL 9.6 MG/DL (8.5-10.1); CHOLESTEROL RISK RATIO 2.94 (<5); CREATININE FOR GFR 1.41 MG/DL (0.70-1.30); GLOMERULAR FILTRATION RATE 56.6 (>56); HDL CHOLESTEROL 38.4 MG/DL (>40); NON-HDL-C 74.6 MG/DL; POTASSIUM SERUM 4.3 MMOL/L (3.5-5.1); TOTAL PROTEIN 7.5 G/DL (5.7-8.2)
== END ==
LOC: M LAB 09:59
PROVIDERS: ATTEND Family Medicine
DX: Z12.5 Encounter for screening for malignant neoplasm of prostate (principal); E03.9 Hypothyroidism, unspecified

== ENCOUNTER → 2022-12-11 | Outpatient (CLI) | payer BC | LOC: M LAB 08:51 | PROVIDERS: ATTEND Physician Assistant Medical | DX: Z12.5 Encounter for screening for malignant neoplasm of prostate (principal) ==

== ENCOUNTER → 2022-12-14 | Outpatient (CLI) | payer BC ==
[2022-12-14 10:46] LABS: URIC ACID 5.6 MG/DL (3.7-9.2)
[2022-12-14 10:47] LABS: ALKALINE PHOSPHATASE 47 U/L (46-116); ALT/SGPT 36 U/L (7.0-40); AST/SGOT 18 U/L (<34); BILIRUBIN,TOTAL 0.7 MG/DL (0.3-1.2); BLOOD UREA NITROGEN 18 MG/DL (9-23); CALCIUM LEVEL 9.7 MG/DL (8.5-10.1); CARBON DIOXIDE LEVEL 31 MMOL/L (20-31); CHLORIDE LEVEL 102 MMOL/L (98-107); CREATININE FOR GFR 1.46 MG/DL (0.70-1.30); GLOMERULAR FILTRATION RATE 54.2 (>56); GLUCOSE, FASTING 101 MG/DL (60-100); POTASSIUM SERUM 4.2 MMOL/L (3.5-5.1); SODIUM LEVEL 140 MMOL/L (136-145); TOTAL PROTEIN 7.6 G/DL (5.7-8.2)
[2022-12-14 10:48] LABS: C REACTIVE PROTEIN QUANTITATIV < 0.40 MG/DL (<1.0)
[2022-12-14 10:49] LABS: RHEUMATOID FACTOR QUANT < 3.5 IU/ML (<14)
[2022-12-16 00:08] LABS: ANA (HEP2) Negative (.); CYCLIC CITRULLINATED PEPTIDE 6 units (0-19)
== END ==
LOC: M RAD 09:15
PROVIDERS: ATTEND Family Medicine
DX: M65.331 Trigger finger, right middle finger (principal)

== ENCOUNTER → 2022-12-27 | Outpatient (CLI) | payer BC | LOC: M RAD 06:23 | PROVIDERS: ATTEND Family Medicine | DX: R10.11 Right upper quadrant pain (principal) ==

== ENCOUNTER → 2023-07-13 | Outpatient (CLI) | payer BC ==
[~2023-07-13] MED LIST changes: +DOXY-323 PO; -DOXY-443 PO
[2023-07-13 14:17] LABS: FREE T4 1.79 NG/DL (0.89-1.76)
[2023-07-13 14:18] LABS: THYROID STIMULATING HORMONE 0.257 uIU/ML (0.55-4.78)
== END ==
LOC: M LAB 11:43
PROVIDERS: ATTEND Internal Medicine Endocrinology, Diabetes & Metabolism
DX: E11.65 Type 2 diabetes mellitus with hyperglycemia (principal)

== ENCOUNTER → 2023-10-15 | Outpatient (CLI) | payer BC ==
[~2023-10-15] MED LIST changes: +BYST1TAB2 PO; -BYST5TAB2 PO
[2023-10-15 09:23] LABS: FREE T4 1.84 NG/DL (0.89-1.76); THYROID STIMULATING HORMONE 0.783 uIU/ML (0.55-4.78)
== END ==
LOC: M LAB 08:24
PROVIDERS: ATTEND Internal Medicine Endocrinology, Diabetes & Metabolism
DX: E03.9 Hypothyroidism, unspecified (principal)

== ENCOUNTER → 2023-12-14 | Outpatient (CLI) | payer BC ==
[~2023-12-14] MED LIST changes: -DOXY-323 PO; +DOXY-441 PO
== END ==
LOC: M LAB 09:29
PROVIDERS: ATTEND Physician Assistant Medical
DX: Z12.5 Encounter for screening for malignant neoplasm of prostate (principal)

== ENCOUNTER → 2024-02-24 | Outpatient (REF) | payer BC | LOC: M LAB REF 15:44 | PROVIDERS: ATTEND Family Medicine | DX: B37.2 Candidiasis of skin and nail (principal) ==

== ENCOUNTER → 2024-03-31 | Outpatient (CLI) | payer BC ==
[2024-03-31 11:23] LABS: BASO # 0.1 10^3/uL (0.0-0.2); EOS # 0.1 10^3/uL (0.0-0.5); EOS % 1.1 % (0.0-3.0); HEMATOCRIT 45.7 % (42.0-52.0); HEMOGLOBIN 15.3 g/dl (13.5-17.5); LYMPH # 2.2 10^3/uL (1.5-5.0); LYMPH % 26.8 % (24.0-44.0); MEAN CORPUSCULAR HEMOGLOBIN 28.4 pg (27.0-33.0); MEAN CORPUSCULAR HGB CONC 33.5 g/dl (32.0-36.5); MEAN CORPUSCULAR VOLUME 84.8 fl (80.0-96.0); MONO # 0.6 10^3/uL (0.0-0.8); MONO % 7.7 % (2.0-8.0); NEUTROPHILS # 5.1 10^3/uL (1.5-8.5); PLATELET COUNT, AUTOMATED 228 10^3/uL (150-450); RED BLOOD COUNT 5.39 10^6/uL (4.30-6.10); WHITE BLOOD COUNT 8.1 10^3/uL (4.0-10.0)
[2024-03-31 11:54] LABS: FREE T4 2.25 NG/DL (0.89-1.76); THYROID STIMULATING HORMONE 0.117 uIU/ML (0.55-4.78)
[2024-03-31 11:55] LABS: ALKALINE PHOSPHATASE 34 U/L (40-129); ALT/SGPT 61 U/L (7.0-40); AST/SGOT 30 U/L (<34); BILIRUBIN,TOTAL 0.7 MG/DL (0.3-1.2); BLOOD UREA NITROGEN 16 MG/DL (9-23); CALCIUM LEVEL 9.8 MG/DL (8.5-10.1); CARBON DIOXIDE LEVEL 29 MMOL/L (20-31); CHLORIDE LEVEL 102 MMOL/L (98-107); CHOLESTEROL LEVEL 105 MG/DL (<200); CHOLESTEROL RISK RATIO 3.23 (<5); CREATININE FOR GFR 1.26 MG/DL (0.70-1.30); FERRITIN 459.2 NG/ML (10.5-307.3); GLOMERULAR FILTRATION RATE > 60.0 (>56); GLUCOSE, FASTING 96 MG/DL (60-100); HDL CHOLESTEROL 32.5 MG/DL (>40); IRON (FE) 70 UG/DL (65-175); LDL CHOLESTEROL 50.9 MG/DL (<100); NON-HDL-C 72.5 MG/DL; PERCENT SATURATION 21.1 % (19.7-50.0); POTASSIUM SERUM 3.8 MMOL/L (3.5-5.1); SODIUM LEVEL 141 MMOL/L (136-145); TOTAL IRON BINDING CAPACITY 331 UG/DL (250-425); TOTAL PROTEIN 7.4 G/DL (5.7-8.2); TRIGLYCERIDES LEVEL 108 MG/DL (<150)
[2024-03-31 11:57] LABS: TOTAL 25(OH) VITAMIN D 24.8 NG/ML (20.0-100.0); VITAMIN B12 LEVEL 359 PG/ML (211-911)
[2024-03-31 12:03] LABS: HEMOGLOBIN A1c 7.1 % (4.0-6.0)
== END ==
LOC: M LAB 10:52
PROVIDERS: ATTEND Family Medicine
DX: L60.9 Nail disorder, unspecified (principal)

== ENCOUNTER → 2024-05-14 | Outpatient (CLI) | payer BC | LOC: M LAB 10:38 | PROVIDERS: ATTEND Family Medicine | DX: Z01.84 Encounter for antibody response examination (principal) ==

== ENCOUNTER → 2024-05-19 | Outpatient (CLI) | payer BC ==
[2024-05-19 10:57] LABS: FREE T4 1.78 NG/DL (0.89-1.76)
[2024-05-19 10:58] LABS: THYROID STIMULATING HORMONE 0.646 uIU/ML (0.55-4.78)
== END ==
LOC: M LAB 08:52
PROVIDERS: ATTEND Family Medicine
DX: E03.9 Hypothyroidism, unspecified (principal)